=== PATIENT | male | born 1980 | race Caucasian/White ===

== ENCOUNTER 2020-07-28 15:10 | Emergency (ER) | payer BC, SELFPAY ==
[2020-07-28 15:16] VITALS: BP 131/85; PULSE 98; RESP 18; TEMP 37.1; O2SAT 98; BMI 37.7
--- NOTE | 2020-07-28 15:28 | CTR_ITS ---
PROCEDURE INFORMATION: Exam: CT Abdomen And Pelvis With Contrast Exam date and time: 07/28/2020 4:29 PM Age: 40 years old Clinical indication: Abdominal pain; Localized; Right lower quadrant (rlq); Prior surgery; Surgery type: Gb TECHNIQUE: Imaging protocol: Computed tomography of the abdomen and pelvis with contrast. Radiation optimization: All CT scans at this facility use at least one of these dose optimization techniques: automated exposure control; mA and/or kV adjustment per patient size (includes targeted exams where dose is matched to clinical indication); or iterative reconstruction. Contrast material: OMNI 300; Contrast volume: 95 ml; Contrast route: INTRAVENOUS (IV); COMPARISON: CT abdomen pelvis wo con [id number] 06/15/2018 8:04 AM RADIATION DOSE METRICS: Total DLP (mGy-cm): 1801.79 FINDINGS: Liver: Normal. No mass. Gallbladder and bile ducts: Cholecystectomy. No dilation of the biliary system. Pancreas: Normal. No ductal dilation. Spleen: Normal. No splenomegaly. Adrenal glands: Normal. No mass. Kidneys and ureters: Normal. No hydronephrosis. Stomach and bowel: Mild severity nonspecific wall thickening changes are identified throughout a majority of the colon. No focal masses of the bowel wall. Negative for bowel wall pneumatosis. Colon is mildly distended with fluid. Small bowel loops are unremarkable. Appendix: No evidence of appendicitis. Intraperitoneal space: No free air. No intraperitoneal fluid collection. Vasculature: Unremarkable. No abdominal aortic aneurysm. Mesenteric vasculature is patent and unremarkable. Lymph nodes: Unremarkable. No enlarged lymph nodes. Urinary bladder: Unremarkable as visualized. Reproductive: Unremarkable as visualized. Bones/joints: Unremarkable. No acute fracture. Soft tissues: Unremarkable. CT/CT abdomen pelvis w con* [id number] IMPRESSION: A mild nonspecific pancolitis pattern cannot be excluded. Recommend clinical correlation for lower gastrointestinal symptoms. Radiation Dose CTDIVOL = (mGy): DLP = 1801.79 (mGy-cm)
--- NOTE | 2020-07-28 15:29 | ED_ITS ---
HPI - Abdominal Pain General: Chief Complaint: Abdominal Pain Stated Complaint: urgent care sent for ct of kidneys Time Seen by Provider: 07/28/20 15:22 Source: patient and family Mode of arrival: ambulatory Limitations: no limitations History of Present Illness: HPI narrative: Mr. Light is a very nice 40-year-old male who comes in complaining of abdominal pain. Describes abdo vainey pain as sharp and intermittent all throughout his abdomen. He is unaware of anything makes his symptoms better or worse. He is nauseated has not vomited. He has watery diarrhea. His pain is diffuse in nature. He was seen in urgent care and sent here to the emergency department to be evaluated for appendicitis or kidney stones. Patient denies any blood in his urine or urinary symptoms. He otherwise denies any other complaints or concerns. Associated Symptoms: Reports diarrhea and nausea; Denies chills, coffee ground emesis, constipation, GI cramping, dysuria, fever(s), heartburn, hematochezia, hematuria, hematemesis, melena, syncope and vomiting Review of Systems Const: Denies: fever(s), chills, body aches, fatigue, malaise or diaphoresis Eyes: Denies: change in vision, blurry vision, photophobia, eye discomfort, eye discharge, eye redness or yellow eyes ENMT: Denies: throat pain, odynophagia, hoarseness, swelling of lips/tongue, ear or mastoid pain, ear discharge, change in hearing or nasal discharge Card: Denies: chest pain, palpitations, irregular heart rhythm, edema, lightheadedness, syncope, pre-syncope, dyspnea on exertion or orthopnea Resp: Denies: dyspnea, productive cough, non-productive cough, wheezing, hemoptysis or chest congestion GI: Reports: abdominal pain, nausea and diarrhea; Denies: vomiting, hematemesis, coffee ground emesis, heartburn, constipation, GI cramping, hematochezia or melena : Denies: flank pain, dysuria, urinary frequency, urinary urgency or hematuria Musc: Denies: neck pain, back pain, extremity pain, extremity swelling, joint pain, joint swelling, joint redness, joint warmth or joint stiffness Skin/Breast: Denies: rash, pruritus, erythema, skin pain or skin tenderness Neuro: Denies: headache(s), numbness in extremities, weakness in extremities, sensory changes, lack of coordination, difficulty walking, dizziness, vertigo, confusion, Slurred speech present or seizure-like activity Jude/Lymph: Denies: easy bruising, easy bleeding, petechiae, purpura or enlarged lymph nodes All/Imm: Denies: urticaria, throat swelling, tongue swelling, facial swelling or acute wheezing PFSH ED PFSH: Social History Smoking and tobacco status: former smoker Physical Exam Const: COMMON NORMALS: no acute distress, patient oriented x3, no limitations and alert GENERAL APPEARANCE: cooperative HENMT: COMMON NORMALS: normocephalic, atraumatic, external ears normal, EAC's normal and Normal external nose present HEAD & SCALP: normal to inspection, normocephalic and atraumatic FACE & SINUS: normal facial exam and face symmetric NOSE: Normal external nose present and Normal nares present EXTERNAL EAR: Yes external ears normal EXTERNAL AUDITORY CANAL: EAC's normal MOUTH: Normal oral and palatal mucosa present, lip normal and tongue normal Eye: COMMON NORMALS: Equal, round and reactive pupils present and conjunctivae normal GENERAL EYE: appearance normal, both eyes and all related structures ALIGNMENT: Yes alignment normal PERIORBITAL: periorbital findings normal EYELID: eyelids normal CONJUNCTIVA: Yes conjunctivae normal SCLERA: sclerae normal PUPIL: Yes Equal, round and reactive pupils present Neck/C-Spine: COMMON NORMALS: full ROM, no lymphadenopathy, supple, no meningeal signs and no JVD GENERAL: Yes normal visual inspection and Yes trachea midline Chest: COMMONS NORMALS: normal inspection of the chest and normal palpation of entire chest wall Resp: COMMON NORMALS: normal respiratory effort, No retractions, No use of accessory muscles and clear to auscultation bilaterally EFFORT & INSPECTION: Yes able to speak in complete sentences and Yes symmetric chest movement AUSCULTATION: clear to auscultation bilaterally, no crackles, no rales, no rhonchi and no wheezes Cardio: COMMON NORMALS: no JVD, regular rate, regular rhythm, S1 normal heart sound present and S2 normal heart sound present RATE: regular rate RHYTHM: regular rhythm HEART SOUNDS: S1 normal heart sound present, S2 normal heart sound present, no click, no gallops, no murmurs and no rubs GI: COMMON NORMALS: Soft to palpation and No hepatosplenomegaly present PALPATION: Yes Soft to palpation, No Tenderness to palpation present (GI), No Guarding due to palpation present (GI), No Rigid due to palpation, Yes No hepatosplenomegaly present, No Hernia present, No Palpable mass present and No Pulsatile mass present : COMMON NORMALS: Yes no CVA tenderness BLADDER/KIDNEY EXAM: Yes no CVA t enderness Back/Pelvis: COMMON NORMALS: no CVA tenderness, thoracic and lumbar spine normal to inspection, no thoracic nor lumbar tenderness and thoraco-lumbar ROM normal Extremity: COMMON NORMALS: normal to inspection, full ROM, capillary refill normal, no joint enlargement, no clubbing, cyanosis or edema and no calf tenderness Neuro: COMMON NORMALS: patient oriented x3, CN's II-XII intact bilaterally, moves all extremities, no focal motor deficits and no sensory deficits noted SENSORIUM/ORIENTATION: Yes alert MENINGEAL SIGNS: Yes no meningeal signs SPEECH: speech normal Psych: COMMON NORMALS: mental status grossly normal, Normal thought process p resent, cooperative, normal affect, speech normal and activity/motor behavior normal SPEECH: Yes normal speech THOUGHT PROCESS: Normal thought process present Skin: COMMON NORMALS: no rashes or lesions noted, turgor normal, no jaundice, no petechiae and no mottling GENERAL SKIN EXAM: no rashes or lesions noted and turgor normal Course Vital Signs: Vital signs: Vital Signs Temperature 102.4 F H 07/28/20 16:15 Pulse Rate 98 07/28/20 16:15 Respiratory Rate 24 H 07/28/20 16:15 Blood Pressure 172/100 07/28/20 16:15 Pulse Oximetry 100 07/28/20 16:15 MDM - Abdominal Pain MDM Narrative: Medical decision making narrative: 1729 -Mr. Light is a nice 40-year-old male who comes in complaining of abdominal pain that is sharp in nature and diffuse and intermittent throughout his abdomen. He has had a fever at home as high as 103. He did develop a fever here 102.4. The patient's been having watery stools that are nonbloody. No one else at home has been sick. CT scan reveals a normal appendix and no sign of gallbladder disease. There is no evidence of kidney stone or ureteral stone. There is a report of mild nonspecific pancolitis but this is not definitive. I offered the patient admission for observation and antibiotic treatment but he declines. He would rather go home he thinks he will be more comfortable there. I reviewed the case with Dr. Knox on-call for the patient's primary care physician Dr. Alanis and she agrees that the patient can be seen in their office for follow-up on Wednesday or Wednesday. I will place the patient on Cipro and Flagyl and medicine for nauseousness at home. He understands that if his symptoms worsen, his fever cannot be controlled or his abdominal pain returns he will need to return to the hospital. At this time though he states he is feeling much better. He is been given IV fluids and will be given IV antibiotics to start him before he goes. Differential Diagnosis: Differential diagnosis abdominal pain: Likely abdominal pain, acute appendicitis, calculus of kidney, diverticulitis, gastroenteritis and pancreatitis Lab Data: Labs: Lab Results 07/28/20 07/28/20 07/28/20 Range/Units 16:25 16:25 16:42 WBC 15.6 H (4.0-10.0) 10^3/ uL RBC 4.87 (4.1-5.3) 10^6/u L Hgb 13.6 (11.7-16.6) g/dL Hct 40.4 L (42.0-52.0) % MCV 83.0 (80-94) fL MCH 27.9 L (28.0-34.0) pg MCHC 33.7 (30.0-36.0) g/dL RDW 13.3 (12.1-15.1) % Plt Count 267 (130-400) 10^3/c mm MPV 9.8 (7.4-10.4) fL Neut % (Auto) 77.8 % Lymph % (Auto) 9.7 % Sherman % (Auto) 11.2 % Eos % (Auto) 0.6 % Baso % (Auto) 0.4 % Neut # (Auto) 12.11 H (1.8-7.7) 10^3/u L Lymph # (Auto) 1.5 (0.8-4.8) 10^3/u L Sherman # (Auto) 1.7 H (0.2-0.9) 10^3/u L Eos # (Auto) 0.1 (0.0-0.8) 10^3/u L Baso # (Auto) 0.1 (0.0-0.1) 10^3/u L Nucleated RBC % (a uto) 0 % Nucleated RBCs # 0.0 /100WBC Sodium 137 (136-145) mmol/L Potassium 4.1 (3.5-5.1) mmol/L Chloride 100 (98-107) mmol/L Carbon Dioxide 26 (22-29) mmol/L Anion Gap 15.1 (5-19) BUN 11 (6-20) mg/dL Creatinine 0.9 (0.7-1.2) mg/dL GFR Calculation 93.0 (90-130) mL/min Glucose 121 H (65-115) mg/dL Calculated Osmolal ity 285 (285-295) mOsm/k g Calcium 8.8 (8.5-10.5) mg/dL Magnesium 2.0 (1.7-2.3) mg/dL Total Bilirubin 0.5 (0.15-1.2) mg/dL AST 13 (0-40) U/L ALT 14 (0-41) U/L Alkaline Phosphata se 81 (40-130) IU/L Total Protein 7.3 (6.6-8.7) g/dL Albumin 4.0 (3.5-5.2) g/dL Globulin 3.3 (1.3-4.6) g/dL Lipase 11 L (13-60) U/L Urine Color Yellow (Yellow) Urine Appearance Clear (CLEAR) Urine pH 8 H (5-7) Ur Specific Gravit y 1.010 (1.005-1.030) Urine Protein 1+ H (Negative) Urine Glucose (UA) Norm (Normal) Urine Ketones Negative (Negative) Urine Blood 2+ H (Negative) Urine Nitrate Negative (Negative) Urine Bilirubin Neg (Negative) Prot Sulfosalicyli c Acd Positive (Negative) Urine Urobilinogen Norm (Negative) mg/dL Ur Leukocyte Catarina ase Negative (Negative) Urine RBC 0-4 H (0-2) /hpf Urine WBC Rare (0-5) /hpf Ur Squamous Epith Cells Rare (0-5) /hpf Amorphous Sediment Not Reportable Urine Bacteria Trace (NONE) /hpf Discharge Plan Discharge Patient Disposition: Home Clinical Impression: Colitis Condition: Stable Prescriptions: New promethazine 25 mg tablet 25 mg PO Q4H PRN (Reason: nausea and vomiting) Qty: 20 RF: 0 ciprofloxacin HCl [Cipro] 500 mg tablet 500 mg PO BID Qty: 20 RF: 0 metronidazole [Flagyl] 500 mg tablet 500 mg PO TID 10 Days Qty: 30 RF: 0 No Action omeprazole 20 mg capsule,delayed release(DR/EC) 20 mg PO DAILY RF: 0 ibuprofen 200 mg Tablet 800 mg PO PRN RF: 0 Discharge Orders: Discharge ED (Routine); Ordered 07/28/20 Ordered By: Octavia Oliveira Referrals: Kenton Alanis MD [Primary Care Provider] - 1-3 days (Call for an appointment tomorrow I have been assured by Dr. Knox will be rechecked in the office within the next 1 to 2 days) Discharge Diet: Advance as tolerated and Clear Liquid Discharge Activity: Increase activity as tolerated Patient Instructions: Infectious Colitis (ED) Activity Restrictions/Additional Instructions: Please return to the ER immediately for any of the signs or symptoms listed on your discharge instruction sheets, worsening/changing of your symptoms, you are not getting better as quickly as expected, or for ANY other cause or concerns. You have been offered further evaluation and care here including observation in the hospital for your symptoms but you have declined. If your abdominal pain returns/worsens, you develop vomiting, your fever is uncontrolled or you have any other new symptoms or problems please return to the ER immediately for recheck. You are welcome to return to the ER simply if you change your mind. Be certain to call tomorrow for an appointment to be seen by Dr. Alanis. They will recheck you in the office. Follow a clear liquid diet except for your medications. You can take Tylenol Motrin at home as needed for fever or discomfort. As your pain subsides you may slowly advance your diet as tolerated. Stand Alone Forms: Work/School Release Coding Level of Care Code ED [employer] for [employer] Fwd Exam Comprehensive
[2020-07-28] MEDS: ondansetron 2 mg/ML SDV 2 mL 4 MG IVP (15:46)
[2020-07-28 15:47] VITALS: RESP 18
[2020-07-28] MEDS: morphine 4 mg/mL SDV 1 mL IVP (15:47)
[2020-07-28] MEDS: lactated ringers 1,000 ML 999 ML IV ×2 (15:48→16:27)
[2020-07-28 16:15] VITALS: BP 172/100; PULSE 98; RESP 24; TEMP 39.1; O2SAT 100
--- NOTE | 2020-07-28 16:32 | PC.NURSE ---
Pt to CT
[2020-07-28] MEDS: iohexol 300 mg/mL 100 mL Btl IV (16:34)
[2020-07-28 16:37] LABS: Basophils # 0.1 10^3/uL (0.0-0.1); Basophils % 0.4 %; Eosinophils # 0.1 10^3/uL (0.0-0.8); Eosinophils % 0.6 %; Hematocrit 40.4 % (42.0-52.0); Hemoglobin 13.6 g/dL (11.7-16.6); Lymphocytes # 1.5 10^3/uL (0.8-4.8); Lymphocytes % 9.7 %; Mean Corpuscular HGB Conc 33.7 g/dL (30.0-36.0); Mean Corpuscular Hemoglobin 27.9 pg (28.0-34.0); Mean Platelet Volume 9.8 fL (7.4-10.4); Monocytes # 1.7 10^3/uL (0.2-0.9); Monocytes % 11.2 %; Neutrophils # 12.11 10^3/uL (1.8-7.7); Neutrophils % 77.8 %; Nucleated Red Blood Cells % 0 %; Platelet Count 267 10^3/cmm (130-400); Red Blood Count 4.87 10^6/uL (4.1-5.3); Red Cell Distribution Width 13.3 % (12.1-15.1); White Blood Count 15.6 10^3/uL (4.0-10.0)
[2020-07-28] MEDS: acetaminophen 1,000 MG/100 ML PIGGYBACK 400 MG IV (16:49)
[2020-07-28 17:12] LABS: Bilirubin Urine Neg (Negative); Blood Urine 2+ (Negative); Glucose Urine UA Norm (Normal); Ketones Urine Negative (Negative); Nitrate Urine Negative (Negative); Protein Urine 1+ (Negative); Urine Appearance Clear (CLEAR); Urine Color Yellow (Yellow); pH Urine 8 (5-7)
[2020-07-28 17:12] LABS: Alanine Aminotransferase 14 U/L (0-41); Alkaline Phosphatase 81 IU/L (40-130); Anion Gap 15.1 (5-19); Aspartate Amino Transferase 13 U/L (0-40); Blood Urea Nitrogen 11 mg/dL (6-20); Calcium 8.8 mg/dL (8.5-10.5); Carbon Dioxide 26 mmol/L (22-29); Chloride 100 mmol/L (98-107); Globulin 3.3 g/dL (1.3-4.6); Glucose 121 mg/dL (65-115); Lipase 11 U/L (13-60); Osmolality Calculated 285 mOsm/kg (285-295); Potassium 4.1 mmol/L (3.5-5.1); Sodium 137 mmol/L (136-145); Total Bilirubin 0.5 mg/dL (0.15-1.2); Total Protein 7.3 g/dL (6.6-8.7)
[2020-07-28 17:13] LABS: Add Urine Culture? No; Add Urine Microscopic? YES; Bacteria Urine TRACE /hpf; Leukocyte Esterase Urine Negative (Negative); RBC Urine 0-4 /hpf (0-2); Squamous Epithelial Cell Urine RARE /hpf (0-5); Sulfosalicylic Acid Urine Positive (Negative); Urobilinogen Urine Norm (Negative); WBC Urine RARE /hpf (0-5)
[2020-07-28 17:57] LABS: Lactic Sepsis W/Reflex 1.4 mmol/L (0.5-2.2)
[2020-07-28 18:09] VITALS: BP 116/70; PULSE 79; RESP 18; O2SAT 96
[2020-07-28 18:31] VITALS: BP 139/81; PULSE 79; RESP 16; TEMP 36.9; O2SAT 95
[2020-07-28 18:43] VITALS: BP 139/81; PULSE 81; RESP 18; TEMP 37.1; O2SAT 94
== END 2020-07-28 19:13 | disposition home or self-care (01) ==
PROVIDERS: Emergency Provider Emergency Medicine; PCP Family Medicine
DX: K52.9 Noninfective gastroenteritis and colitis, unspecified (principal); Z87.891 Personal history of nicotine dependence
CPT/HCPCS: 36415; 74177; 80053; 81000; 81001; 83605; 83690; 83735; 85025; 87040; 87086; 96361; 96374; 96375; 99284; J2270; J2405; Q9967